=== PATIENT | male | born 1950 | race Caucasian/White ===

== ENCOUNTER 2021-02-14 18:28 | Observation (INO) | payer MEDICARE, OTHER ==
[~2021-02-14] VITALS: Ht 177.8 cm; Wt 99.3 kg
[2021-02-14 18:41] LABS: BASOPHILS % (AUTO) 0 % (0-10); EOSINOPHILS # (AUTO) 0.1 10^3/uL (0.0-0.3); EOSINOPHILS % (AUTO) 1 % (0-10); HEMATOCRIT 42 % (40-54); HEMOGLOBIN 13.4 g/dL (13.3-17.7); LYMPHOCYTES # (AUTO) 2.5 10^3/uL (1.0-4.0); LYMPHOCYTES % (AUTO) 20 % (12-44); MEAN CORPUSCULAR HEMOGLOBIN 30 pg (25-34); MEAN CORPUSCULAR HGB CONC 32 g/dL (32-36); MEAN CORPUSCULAR VOLUME 94 fL (80-99); MEAN PLATELET VOLUME 10.4 fL (9.0-12.2); MONOCYTES # (AUTO) 1.5 10^3/uL (0.0-1.0); MONOCYTES % (AUTO) 12 % (0-12); NEUTROPHILS # (AUTO) 8.2 10^3/uL (1.8-7.8); NEUTROPHILS % (AUTO) 66 % (42-75); PLATELET COUNT 197 10^3/uL (130-400); WHITE BLOOD COUNT 12.3 10^3/uL (4.3-11.0)
--- NOTE | 2021-02-14 18:42 | ED Cardiac General ---
History of Present Illness General Chief Complaint: Cardiac/General Problems Stated Complaint: CP Source: patient Exam Limitations: no limitations History of Present Illness Date Seen by Provider: February 14, 2021 Time Seen by Provider: 18:35 Initial Comments This is a well-appearing 70-year-old male who presents to the ER via POV with complaints of fatigue and generalized weakness for the past 2 days. States that he fell on Sunday and injured his wrist, no fractures identified at that time. Today he was seen by [facility] and was noted to have elevated heart rate in the 140s and he was referred to the emergency department for further evaluation. He denies fever, chills, cough, shortness of breath, nausea, vomiting, diarrhea, abdominal pain. Allergies and Home Medications Allergies Coded Allergies: azithromycin (Verified Allergy, Unknown, 02/14/21) "ARM SWELLING" Patient Home Medication List Home Medication List Reviewed: Yes Review of Systems Review of Systems Constitutional: see HPI EENTM: No Symptoms Reported Respiratory: See HPI Cardiovascular: See HPI Gastrointestinal: No Symptoms Reported Genitourinary: No Symptoms Reported Musculoskeletal: no symptoms reported Skin: no symptoms reported Psychiatric/Neurological: No Symptoms Reported Past Pnezsop-Ommhqe-Fiavhz Hx Patient Social History Recent Infectious Disease Expo: No Physical Exam Vital Signs Vital Signs - First Documented 02/14/21 18:31 Temp 36.0 Pulse 144 Resp 18 B/P (MAP) 161/116 (131) O2 Delivery Room Air Capillary Refill : Less Than 3 Seconds Height, Weight, BMI Height: '" Weight: lbs. oz. kg; 31.00 BMI Method: General Appearance: No Apparent Distress, WD/WN HEENT: PERRL/EOMI, Normal ENT Inspection Neck: Full Range of Motion, Non Tender Respiratory: Chest Non Tender, Lungs Clear, Normal Breath Sounds, No Accessory Muscle Use Cardiovascular: Normal Peripheral Pulses, Irregularly Irregular, Tachycardia Gastrointestinal: Normal Bowel Sounds, Non Tender, Soft Extremity: Normal Inspection, Normal Range of Motion, Non Tender Neurologic/Psychiatric: Alert, Oriented x3, No Motor/Sensory Deficits, Normal Mood/Affect Skin: Normal Color, Warm/Dry Progress/Results/Core Measures Results/Orders Lab Results Laboratory Tests Test 02/14/21 18:34 02/14/21 19:27 Range/Units White Blood Count 12.3 H 4.3-11.0 10^3/uL Red Blood Count 4.43 4.30-5.52 10^6/uL Hemoglobin 13.4 13.3-17.7 g/dL Hematocrit 42 40-54 % Mean Corpuscular Volume 94 80-99 fL Mean Corpuscular Hemoglobin 30 25-34 pg Mean Corpuscular Hemoglobin Concent 32 32-36 g/dL Red Cell Distribution Width 12.6 10.0-14.5 % Platelet Count 197 130-400 10^3/uL Mean Platelet Volume 10.4 9.0-12.2 fL Immature Granulocyte % (Auto) 1 % Neutrophils (%) (Auto) 66 42-75 % Lymphocytes (%) (Auto) 20 12-44 % Monocytes (%) (Auto) 12 0-12 % Eosinophils (%) (Auto) 1 0-10 % Basophils (%) (Auto) 0 0-10 % Neutrophils # (Auto) 8.2 H 1.8-7.8 10^3/uL Lymphocytes # (Auto) 2.5 1.0-4.0 10^3/uL Monocytes # (Auto) 1.5 H 0.0-1.0 10^3/uL Eosinophils # (Auto) 0.1 0.0-0.3 10^3/uL Basophils # (Auto) 0.0 0.0-0.1 10^3/uL Immature Granulocyte # (Auto) 0.1 0.0-0.1 10^3/uL Prothrombin Time 13.8 12.2-14.7 SEC INR Comment 1.0 0.8-1.4 Activated Partial Thromboplast Time 29 24-35 SEC D-Dimer 0.81 H 0.00-0.49 UG/ML Sodium Level 142 135-145 MMOL/L Potassium Level 4.5 3.6-5.0 MMOL/L Chloride Level 108 H 98-107 MMOL/L Carbon Dioxide Level 22 21-32 MMOL/L Anion Gap 12 5-14 MMOL/L Blood Urea Nitrogen 22 H 7-18 MG/DL Creatinine 0.94 0.60-1.30 MG/DL Estimat Glomerular Filtration Rate > 60 BUN/Creatinine Ratio 23 Glucose Level 171 H 70-105 MG/DL Calcium Level 9.7 8.5-10.1 MG/DL Corrected Calcium 9.7 8.5-10.1 MG/DL Magnesium Level 1.8 1.6-2.4 MG/DL Total Bilirubin 0.6 0.1-1.0 MG/DL Aspartate Amino Transf (AST/SGOT) 25 5-34 U/L Alanine Aminotransferase (ALT/SGPT) 24 0-55 U/L Alkaline Phosphatase 80 40-136 U/L Total Creatine Kinase 59 30-200 U/L Creatine Kinase MB 1.9 <6.6 NG/ML Myoglobin 34.0 10.0-92.0 NG/ML Troponin I 0.043 H <0.028 NG/ML B-Type Natriuretic Peptide 363.6 H <100.0 PG/ML Total Protein 6.9 6.4-8.2 GM/DL Albumin 4.0 3.2-4.5 GM/DL Urine Color YELLOW Urine Clarity CLEAR Urine pH 5.5 5-9 Urine Specific [place] >=1.030 1.016-1.022 Urine Protein NEGATIVE NEGATIVE Urine Glucose (UA) NEGATIVE NEGATIVE Urine Ketones NEGATIVE NEGATIVE Urine Nitrite NEGATIVE NEGATIVE Urine Bilirubin NEGATIVE NEGATIVE Urine Urobilinogen 0.2 < = 1.0 MG/DL Urine Leukocyte Esterase NEGATIVE NEGATIVE Urine RBC (Auto) NEGATIVE NEGATIVE Urine RBC NONE /HPF Urine WBC NONE /HPF Urine Squamous Epithelial Cells NONE /HPF Urine Renal Epithelial Cells NONE /HPF Urine Crystals NONE /LPF Urine Bacteria NEGATIVE /HPF Urine Casts NONE /LPF Urine Mucus NEGATIVE /LPF Urine Culture Indicated NO My Orders Orders - RAUL MOROCHO STAKING ENGINEER Cbc With Automated Diff (02/14/21 18:34) Magnesium (02/14/21 18:34) Chest 1 View, Ap/Pa Only (02/14/21 18:34) Ekg Tracing (02/14/21 18:34) Comprehensive Metabolic Panel (02/14/21 18:34) Myoglobin Serum (02/14/21 18:34) Protime With Inr (02/14/21 18:34) Partial Thromboplastin Time (02/14/21 18:34) O2 (02/14/21 18:34) Monitor-Rhythm Ecg Trace Only (02/14/21 18:34) Ed Iv/Invasive Line Start (02/14/21 18:34) Creatine Kinase (02/14/21 18:34) Creatine Kinase Mb (02/14/21 18:34) BNP (02/14/21 18:34) Troponin I (02/14/21 18:34) Fibrin Degradation Products (02/14/21 18:34) Diltiazem Drip Pre-Mix (Cardizem Drip Pr (02/14/21 19:15) Diltiazem Injection (Cardizem Injection) (02/14/21 19:15) Urinalysis (02/14/21 19:30) Medications Given in ED Current Medications Medications Dose Ordered Sig/Megha Route Start Time Stop Time Status Last Admin Dose Admin Diltiazem HCl 10 mg ONCE ONCE IVP 02/14/21 19:15 02/14/21 19:16 DC 02/14/21 19:37 10 MG Vital Signs/I&O 02/14/21 18:31 Temp 36.0 Pulse 144 Resp 18 B/P (MAP) 161/116 (131) O2 Delivery Room Air Blood Pressure Mean: 131 Progress Progress Note : Progress Note Pt examined and in no acute distress. HR 144. States he has history of afib but is not on anticoagulants. States he takes baby Aspirin daily. Labs reviewed and are unremarkable. Noted to have slight elevation in troponin. Will trend. CXR neg for an acute findings. Initial ECG Impression Date: February 14, 2021 Initial ECG Impression Time: 18:36 Initial ECG Rate: 142 Initial ECG Rhythm: A Fib/Flutter Initial ECG Impression: Atrial Fibrillation w/RVR Diagnostic Imaging Diagonstic Imaging: Xray Plain Films/CT/US/NM/MRI: chest Comments NAME: MAYTE MURDOCK [facility] REC#: [id number] PT STATUS: REG ER : 1950 PHYSICIAN: RAUL MOROCHO STAKING ENGINEER ADMIT DATE: 02/14/21/ER Draft Date of Exam:02/14/21 CHEST 1 VIEW, AP/PA ONLY INDICATION: Chest pain and atrial fibrillation. Frontal chest obtained at 0655 p.m. There is cardiomegaly. There is no focal infiltrate or pneumothorax or pleural fluid. IMPRESSION: Cardiomegaly. No acute infiltrate or pleural fluid. Dictated on workstation # [id number] Dict: 02/14/21 1854 Trans: 02/14/21 1857 ADAL [id number] Interpreted by: MAURA BOJORQUEZ MD Electronically signed by: Reviewed: Reviewed by Me Departure Communication (Admissions) Time/Spoke to Admitting Phy: 19:[address] Flores. Patient to be admitted to the ICU. Will start on Eliquis BID. Time/Spoke to Consulting Phy: 19:[address] Jensen with cardiology. Recommended ICU admission, start Cardizem drip. and start Eliquis PO BID pending hospitalist. Impression Primary Impression: Atrial fibrillation with rapid ventricular response Disposition: ADMITTED INPATIENT Condition: Stable Admissions Decision to Admit Reason: Admit from ER (General) Decision to Admit/Date: February 14, 2021 Time/Decision to Admit Time: 19:44 Departure-Patient Inst. Referrals: UNKNOWN (PCP/Family) Primary Care Physician RAUL MOROCHO STAKING ENGINEER February 14, 2021 18:42
[2021-02-14] MEDS ORDERED: ESCI-2 PO (18:46)
[2021-02-14] MEDS ORDERED: METF-865 PO (18:46)
[2021-02-14] MEDS ORDERED: ESCI20TA39 (18:46)
[2021-02-14] MEDS ORDERED: INSU200I4 SC (18:46)
[2021-02-14] MEDS ORDERED: SOTA80TA62 PO (18:46)
[2021-02-14] MEDS ORDERED: LOSA100T57 PO (18:46)
[2021-02-14] MEDS ORDERED: PRAV40TA2 PO (18:46)
--- NOTE | 2021-02-14 18:57 | Diagnostic Imaging Report ---
INDICATION: Chest pain and atrial fibrillation. Frontal chest obtained at 0655 p.m. There is cardiomegaly. There is no focal infiltrate or pneumothorax or pleural fluid. IMPRESSION: Cardiomegaly. No acute infiltrate or pleural fluid. Dictated by: Dictated on workstation # [id number]
[2021-02-14 19:00] LABS: ALANINE AMINOTRANSFERASE 24 U/L (0-55); ALKALINE PHOSPHATASE 80 U/L (40-136); BILIRUBIN,TOTAL 0.6 MG/DL (0.1-1.0); BUN/CREATININE RATIO 23; CALCIUM 9.7 MG/DL (8.5-10.1); CARBON DIOXIDE 22 MMOL/L (21-32); CHLORIDE 108 MMOL/L (98-107); CREATINE KINASE 59 U/L (30-200); CREATININE SERUM 0.94 MG/DL (0.60-1.30); GFR ESTIMATED > 60; GLUCOSE 171 MG/DL (70-105); MAGNESIUM 1.8 MG/DL (1.6-2.4); POTASSIUM 4.5 MMOL/L (3.6-5.0); SODIUM 142 MMOL/L (135-145); TOTAL PROTEIN 6.9 GM/DL (6.4-8.2)
[2021-02-14 19:04] LABS: FIBRIN DEGRADATION PRODUCTS 0.81 UG/ML (0.00-0.49); PROTHROMBIN TIME PATIENT 13.8 SEC (12.2-14.7)
[2021-02-14 19:08] LABS: CREATINE KINASE MB 1.9 NG/ML (<6.6)
[2021-02-14] MEDS ORDERED: dilTIAZem DRIP PRE-MIX 125 ML IV SCH (19:15)
[2021-02-14 19:37] LABS: BILIRUBIN,URINE NEGATIVE (NEGATIVE); CLARITY,URINE CLEAR; COLOR,URINE YELLOW; GLUCOSE, URINE (UA) NEGATIVE (NEGATIVE); KETONES,URINE NEGATIVE (NEGATIVE); LEUKOCYTE ESTERASE ,URINE NEGATIVE (NEGATIVE); NITRITE,URINE NEGATIVE (NEGATIVE); PH,URINE 5.5 (5-9); PROTEIN,URINE NEGATIVE (NEGATIVE)
[2021-02-14 19:45] LABS: BACTERIA,URINE NEGATIVE /HPF
[2021-02-14] MEDS ORDERED: NS IV 1000 ML 1,000 ML ONE (21:01)
[2021-02-14 21:55] VITALS: BP 161/116
[2021-02-14] MEDS ORDERED: NS IV 1000 ML 1,000 ML IV SCH (22:00)
[2021-02-14] MEDS ORDERED: ACETAMINOPHEN 325 MG TABLET PO PRN (22:00)
[2021-02-14] MEDS ORDERED: RT-ALBUTEROL SULF 2.5 MG/3 ML PRE-MIX VIAL INH PRN (22:00)
[2021-02-14] MEDS ORDERED: NS 100 ML (IVPB) BAG IV ONE (23:15)
[2021-02-14] MEDS ORDERED: IOHEXOL 350 MG/ML 100 ML (OMNIPAQUE 350) VIAL IV ONE (23:15)
[2021-02-14] MEDS ORDERED: HOLD METFORMIN - RECEIVED CONTRAST 20 ML VIAL IV SCH (23:15)
[2021-02-14] MEDS: dilTIAZem DRIP PRE-MIX 125 ML IV SCH (23:40)
[2021-02-14] MEDS: APIXABAN 5 MG (ELIQUIS) TABLET PO SCH (23:40)
[2021-02-15 00:50] LABS: BASOPHILS % (AUTO) 0 % (0-10); EOSINOPHILS # (AUTO) 0.1 10^3/uL (0.0-0.3); EOSINOPHILS % (AUTO) 1 % (0-10); HEMATOCRIT 40 % (40-54); HEMOGLOBIN 12.6 g/dL (13.3-17.7); LYMPHOCYTES # (AUTO) 2.4 10^3/uL (1.0-4.0); LYMPHOCYTES % (AUTO) 22 % (12-44); MEAN CORPUSCULAR HEMOGLOBIN 30 pg (25-34); MEAN CORPUSCULAR HGB CONC 32 g/dL (32-36); MEAN CORPUSCULAR VOLUME 95 fL (80-99); MEAN PLATELET VOLUME 10.6 fL (9.0-12.2); MONOCYTES # (AUTO) 1.3 10^3/uL (0.0-1.0); MONOCYTES % (AUTO) 12 % (0-12); NEUTROPHILS # (AUTO) 6.8 10^3/uL (1.8-7.8); NEUTROPHILS % (AUTO) 64 % (42-75); PLATELET COUNT 177 10^3/uL (130-400); WHITE BLOOD COUNT 10.6 10^3/uL (4.3-11.0)
[2021-02-15 01:07] LABS: BUN/CREATININE RATIO 23; CALCIUM 9.4 MG/DL (8.5-10.1); CARBON DIOXIDE 22 MMOL/L (21-32); CHLORIDE 106 MMOL/L (98-107); CHOLESTEROL 109 MG/DL (< 200); CREATININE SERUM 0.87 MG/DL (0.60-1.30); GFR ESTIMATED > 60; GLUCOSE 204 MG/DL (70-105); HDL CHOLESTEROL 33 MG/DL (40-60); MAGNESIUM 1.8 MG/DL (1.6-2.4); PHOSPHORUS 3.2 MG/DL (2.3-4.7); POTASSIUM 4.4 MMOL/L (3.6-5.0); SODIUM 139 MMOL/L (135-145); TRIGLYCERIDES 102 MG/DL (<150); VLDL CHOLESTEROL 20 MG/DL (5-40)
--- NOTE | 2021-02-15 04:43 | Pulmonary Consultation ---
History of Present Illness History of Present Illness Date Seen by Provider: February 15, 2021 Time Seen by Provider: 04:38 Date of Admission History of Present Illness 70-year-old presented to ED secondary to persistent and worsening fatigue and generalized weakness for the past 2 days. Pt fell on Sunday and injured his wrist, no fractures identified at that time. Pt was seen at [facility] yesterday and was noted to have elevated heart rate in the 140s and he was referred to the emergency department for further evaluation. Denies SOB, N/V/D. CT of chest shows moderate pericardial effusion. Allergies and Home Medications Allergies Coded Allergies: azithromycin (Verified Allergy, Unknown, 02/14/21) "ARM SWELLING" Past Ezhyyvg-Fmgqfq-Vjugte Hx Patient Social History Alcohol Use: Past History Smoking Status: Former Smoker Recent Infectious Disease Expo: No Recent Hopitalizations: No Immunizations Up To Date Date of Influenza Vaccine: Jul 15, 2020 Seasonal Allergies Seasonal Allergies: No Past Medical History Surgeries: Yes Orthopedic Respiratory: No Cardiac: Yes Atrial Fibrillation, Hypertension, Irregular Heartbeat Neurological: No Prostate Problems Gastrointestinal: No Musculoskeletal: No Endocrine: Yes Diabetes, Non-Insulin dep HEENT: No Cancer: No Psychosocial: No Integumentary: No Blood Disorders: No Adverse Reaction/Blood Tranf: No Review of Systems Time Seen by Provider: 04:38 Constitutional: Weakness, Malaise; No: Fever, Chills, Sweats, Other Eyes: No: Pain, Vision change, Conjunctivae inflammation, Eyelid inflammation, Other, Redness ENT: No: Ear pain, Ear discharge, Nose pain, Nose discharge, Nose congestion, Mouth pain, Mouth swelling, Throat pain, Throat swelling, Other Respiratory: No: Cough, Dry, Shortness of breath, SOB with excertion, Wheezing, Hemoptysis, Pleuritic Pain, Sputum, Wheezing, Other Cardiovascular: No: Chest Pain, Palpitations, Orthopnea, Paroxysmal Noc. Dyspnea, Edema, Lt Headedness, Other Gastrointestinal: No: Nausea, Vomiting, Abdominal Pain, Diarrhea, Constipation, Melena, Hematochezia, Other Genitourinary: No Dysuria, No Frequency, No Incontinence, No Hematuria, No Retention, No Other Musculoskeletal: No: other, neck pain, shoulder pain, arm pain, back pain, hand pain, leg pain, foot pain Skin: No: Rash, Lesions, Jaundice, Bruising, Other Sepsis Event Evaluation Height, Weight, BMI Height: '" Weight: lbs. oz. kg; 31.91 BMI Method: Exam Exam Vital Signs Date Time Temp Pulse Resp B/P (MAP) Pulse Ox O2 Delivery O2 Flow Rate FiO2 02/15/21 04:00 76 105/72 (83) 90 Room Air 02/15/21 04:00 91 Room Air 02/15/21 03:00 73 98/60 (73) 92 Room Air 02/15/21 02:00 80 104/62 (76) 90 Room Air 02/15/21 01:00 96 92/70 (77) 91 Room Air 02/15/21 01:00 103 02/15/21 00:00 114 117/58 (77) 93 Room Air 02/14/21 23:59 91 Room Air 02/14/21 23:16 129 137/90 (106) 93 Room Air 02/14/21 23:05 146 Room Air 02/14/21 22:15 123/87 (99) 02/14/21 22:00 126 95 Room Air 02/14/21 21:55 144 21 02/14/21 21:45 137 166/135 (145) 95 Room Air 02/14/21 21:30 115 135/88 (104) 96 Room Air 02/14/21 21:20 109 121/68 (85) 94 Room Air 02/14/21 21:18 36.4 109 18 147/115 (126) 98 Room Air 02/14/21 21:12 124 02/14/21 18:31 36.0 144 18 161/116 (131) Room Air I & O 02/15/21 07:00 Intake Total 250 ml Balance 250 ml Height & Weight Height: '" Weight: lbs. oz. kg; 31.91 BMI Method: General Appearance: No Apparent Distress, WD/WN HEENT: PERRL/EOMI, Normal ENT Inspection Neck: Full Range of Motion, Non Tender Respiratory: Chest Non Tender, Lungs Clear, Normal Breath Sounds, No Accessory Muscle Use Cardiovascular: Normal Peripheral Pulses, Irregularly Irregular, Tachycardia Capillary Refill: Less Than 3 Seconds Extremity: Normal Inspection, Normal Range of Motion, Non Tender Neurologic/Psychiatric: Alert, Oriented x3, No Motor/Sensory Deficits, Normal Mood/Affect Skin: Normal Color, Warm/Dry Results Lab Laboratory Tests 02/14/21 18:34 5/4/21 00:40 Assessment/Plan Assessment/Plan Afib RVR -- converted to sinus at 3am -Cardizem gtt -IVF -Eliquis -Cardiology consulted Pericardial effusion -Echo pending generalized weakness -Pt/OT -Last fall was Sunday NSTEMI -Monitor GEORGETTE MONROE DO February 15, 2021 04:43
[2021-02-15] MEDS ORDERED: MAGNESIUM 1 GM/100 ML IVPB 100 ML IV ONE (04:50)
[2021-02-15] MEDS ORDERED: MAGNESIUM 1 GM/100 ML IVPB 100 ML IV SCH (06:00)
[2021-02-15] MEDS ORDERED: KCL 20 MEQ TAB (K-DUR) PO SCH (06:00)
[2021-02-15] MEDS ORDERED: POTASSIUM CL 10MEQ/50ML IVPB 50 ML IV SCH (06:00)
[2021-02-15] MEDS: dilTIAZem DRIP PRE-MIX 125 ML IV SCH (06:02)
[2021-02-15] MEDS ORDERED: PANTOPRAZOLE 40 MG (PROTONIX) TAB PO SCH (07:00)
[2021-02-15] MEDS ORDERED: ONDANSETRON 4 MG/2 ML (SDV) Z0FRAN IV PRN (07:00)
[2021-02-15] MEDS: APIXABAN 5 MG (ELIQUIS) TABLET PO SCH (07:50)
--- NOTE | 2021-02-15 07:58 | Diagnostic Imaging Report ---
PROCEDURE: CT angiography of the chest with contrast. TECHNIQUE: Multiple contiguous axial images were obtained through the chest after uneventful bolus administration of intravenous contrast. 3D reconstructed CTA MIP acquisitions were also performed. Auto Exposure Controls were utilized during the CT exam to meet ALARA standards for radiation dose reduction. INDICATION: Pain FINDINGS: There are no intraluminal pulmonary arterial filling defects. There were no findings of pulmonary arterial embolus. The thoracic aorta is patent and nonaneurysmal and nonacute. There is pericardial effusion greatest along the left heart border where it measures a thickness of 17 mm. No pleural effusion. There is prominence of the mediastinal fat. There are few mediastinal lymph nodes present, however, all of them have short axes of less than 1 cm and none are grossly pathologic. Some coronary artery atherosclerotic vascular calcifications. There are old rib deformities, some mild pulmonary venous congestion as well as some zones of partial atelectasis likely owing to incomplete inspiratory volume. No dedrick consolidation. No intracardiac chamber mass or thrombus. The visualized upper abdomen shows partially visualized mild low-density left adrenal nodularity likely hyperplasia or adenomas. IMPRESSION: Small to moderate pericardial effusion with no pleural effusion, mild vascular congestion and partial atelectasis. Negative for PE or acute aortic disease. No suspicious mass or pathological appearing lymph nodes. Dictated by: Dictated on workstation # [id number]
--- NOTE | 2021-02-15 08:04 | Diagnostic Imaging Report ---
CHEST 1 VIEW, AP/PA ONLY Indication: Dyspnea Comparison: 02/14/2021 Findings: Stable enlargement of cardiac silhouette. No consolidation within the visualized lungs. No pleural effusion or pneumothorax. Impression: 1. Unchanged cardiomegaly without adverse development. Dictated by: Dictated on workstation # [id number]
--- NOTE | 2021-02-15 08:31 | Consultation-Cardiology ---
HPI-Cardiology Cardiology Consultation: Date of Consultation 02/15/21 Time Seen by a Provider: 08:25 Date of Admission 02-14-21 Attending Physician Esme Parks DO Admitting Physician Meliza,Local Physician Consulting Physician Ishmael Jensen MD HPI: Chief Complaint: A-fib with RVR Mr. Gonzalez is a 70 yr old male admitted to ICU 10 from the ED with a-fib with RVR. His primary news library director is Dr. Salgado at [facility]. He reports for the last few days he has had increasing dizziness, gen weakness and elevated HR. He denies any c/o CP. He states he has a h/o PAF for which he takes Sotalol. He reports he does not take OAC, he takes a full dose ASA 325mg daily. He reports he lost his balance on Sunday and fell injuring his right wrist. He denies that it was a syncopal episode. He reports he was seen in an Urgent care for tx and they directed him to f/u with his provider, which he had not done yet. He denies any syncope or near syncope. No c/o LE swelling. Review of Systems-Cardiology Review of Systems Constitutional: No chills, No fever; lightheadedness, malaise Eyes: No vision change Ears/Nose/Throat: No epistaxis, No recent hearing loss Respiratory: As described under HPI Cardiovascular: As described under HPI Gastrointestinal: no symptoms reported Genitourinary: No dysuria, No hematuria Musculoskeletal: no symptoms reported Skin: No rash on exposed areas, No ulcerations on exposed areas Psychiatric/Neurological: No anxiety, No depression, No seizure, No focal we akness, No syncope Hematologic: No bleeding abnormalities [id number]-[id number] Hx Patient Social History Smoking Status: Former Smoker Immunizations Up To Date Date of Influenza Vaccine: Jul 15, 2020 Past Medical History PMH As described under Assessment. Allergies and Home Medications Allergies Coded Allergies: azithromycin (Verified Allergy, Unknown, 02/14/21) "ARM SWELLING" Home Medications Aspirin 81 Mg Tablet.dr, 81 MG PO DAILY, (Reported) Last Action: Reviewed Escitalopram Oxalate 10 Mg Tablet, 10 MG PO DAILY, (Reported) Last Action: Reviewed Insulin Degludec 200 Unit/1 Ml Insuln.pen, 74 UNITS SC HS, (Reported) Last Action: Reviewed Losartan Potassium 100 Mg Tablet, 100 MG PO DAILY, (Reported) Last Action: Reviewed Metformin HCl 500 Mg Tab.er.24h, 1,000 MG PO BID, (Reported) TAKES 2 (500MG) TABS Last Action: Reviewed Pravastatin Sodium 40 Mg Tablet, 40 MG PO HS, (Reported) Last Action: Reviewed Sotalol HCl 80 Mg Tablet, 80 MG PO BID, (Reported) Last Action: Reviewed Physical Exam-Cardiology Physical Exam Vital Signs/I&O 02/14/21 02/14/21 02/14/21 02/15/21 23:05 23:16 23:59 00:00 Pulse 146 129 114 B/P (MAP) 137/90 (106) 117/58 (77) Pulse Ox 93 91 93 O2 Delivery Room Air Room Air Room Air Room Air 02/15/21 02/15/21 02/15/21 02/15/21 01:00 01:00 02:00 03:00 Pulse 103 96 80 73 B/P (MAP) 92/70 (77) 104/62 (76) 98/60 (73) Pulse Ox 91 90 92 O2 Delivery Room Air Room Air Room Air 02/15/21 02/15/21 02/15/21 02/15/21 04:00 04:00 05:00 06:00 Pulse 76 80 83 B/P (MAP) 105/72 (83) 103/60 (74) 132/86 (101) Pulse Ox 91 90 91 92 O2 Delivery Room Air Room Air Room Air Room Air 02/15/21 02/15/21 02/15/21 02/15/21 06:59 07:00 07:40 08:00 Temp 36.6 Pulse 93 80 B/P (MAP) 115/67 (83) Pulse Ox 92 O2 Delivery Room Air Room Air 02/15/21 02/15/21 02/15/21 08:00 09:00 10:00 Pulse 79 95 89 B/P (MAP) 129/87 (101) 146/86 (106) 117/71 (86) Pulse Ox 93 93 93 O2 Delivery Room Air Room Air Room Air 02/15/21 00:00 Intake Total 250 ml Balance 250 ml Capillary Refill : Less Than 3 Seconds Constitutional: AAO x 3, well-developed, well-nourished HEENT: PERRL, hearing is well preserved, oral hygience is good Neck: No carotid bruit; carotid pulses are 2 + bilaterally Respiratory: No accessory muscle use, No respiratory distress; chest expansion is symmetric, chest is bilaterally symmetric, lungs clear to auscultation Cardiovascular: regular rate-rhythm; No JVD; S1 and S2, systolic murmur Gastrointestinal: No tender; soft, round, audible bowel sounds Extremities: no lower extremity edema bilateral Neurologic/Psychiatric: grossly intact (moves all extremities) Skin: No rash on exposed areas, No ulcerations on exposed areas Data Review Labs Laboratory Tests 02/14/21 18:34: White Blood Count 12.3H, Red Blood Count 4.43, Hemoglobin 13.4, Hematocrit 42, Mean Corpuscular Volume 94, Mean Corpuscular Hemoglobin 30, Mean Corpuscular Hemoglobin Concent 32, Red Cell Distribution Width 12.6, Platelet Count 197, Mean Platelet Volume 10.4, Immature Granulocyte % (Auto) 1, Neutrophils (%) (Auto) 66, Lymphocytes (%) (Auto) 20, Monocytes (%) (Auto) 12, Eosinophils (%) (Auto) 1, Basophils (%) (Auto) 0, Neutrophils # (Auto) 8.2H, Lymphocytes # (Auto) 2.5, Monocytes # (Auto) 1.5H, Eosinophils # (Auto) 0.1, Basophils # (Auto) 0.0, Immature Granulocyte # (Auto) 0.1, Prothrombin Time 13.8, INR Comment 1.0, Activated Partial Thromboplast Time 29, D-Dimer 0.81H, Sodium Level 142, Potassium Level 4.5, Chloride Level 108H, Carbon Dioxide Level 22, Anion Gap 12, Blood Urea Nitrogen 22H, Creatinine 0.94, Estimat Glomerular Filtration Rate > 60, BUN/Creatinine Ratio 23, Glucose Level 171H, Calcium Level 9.7, Corrected Calcium 9.7, Magnesium Level 1.8, Total Bilirubin 0.6, Aspartate Amino Transf (AST/SGOT) 25, Alanine Aminotransferase (ALT/SGPT) 24, Alkaline Phosphatase 80, Total Creatine Kinase 59, Creatine Kinase MB 1.9, Myoglobin 34.0, Troponin I 0.043H, B-Type Natriuretic Peptide 363.6H, Total Protein 6.9, Albumin 4.0 02/14/21 19:27: Urine Color YELLOW, Urine Clarity CLEAR, Urine pH 5.5, Urine Specific [place] >=1.030, Urine Protein NEGATIVE, Urine Glucose (UA) NEGATIVE, Urine Ketones NEGATIVE, Urine Nitrite NEGATIVE, Urine Bilirubin NEGATIVE, Urine Urobilinogen 0.2, Urine Leukocyte Esterase NEGATIVE, Urine RBC (Auto) NEGATIVE, Urine RBC NONE, Urine WBC NONE, Urine Squamous Epithelial Cells NONE, Urine Renal Epithelial Cells NONE, Urine Crystals NONE, Urine Bacteria NEGATIVE, Urine Casts NONE, Urine Mucus NEGATIVE, Urine Culture Indicated NO 02/15/21 00:40: White Blood Count 10.6, Red Blood Count 4.17L, Hemoglobin 12.6L, Hematocrit 40, Mean Corpuscular Volume 95, Mean Corpuscular Hemoglobin 30, Mean Corpuscular Hemoglobin Concent 32, Red Cell Distribution Width 12.8, Platelet Count 177, Mean Platelet Volume 10.6, Immature Granulocyte % (Auto) 0, Neutrophils (%) (Auto) 64, Lymphocytes (%) (Auto) 22, Monocytes (%) (Auto) 12, Eosinophils (%) (Auto) 1, Basophils (%) (Auto) 0, Neutrophils # (Auto) 6.8, Lymphocytes # (Auto) 2.4, Monocytes # (Auto) 1.3H, Eosinophils # (Auto) 0.1, Basophils # (Auto) 0.0, Immature Granulocyte # (Auto) 0.0, Sodium Level 139, Potassium Level 4.4, Chloride Level 106, Carbon Dioxide Level 22, Anion Gap 11, Blood Urea Nitrogen 20H, Creatinine 0.87, Estimat Glomerular Filtration Rate > 60, BUN/Creatinine Ratio 23, Glucose Level 204H, Calcium Level 9.4, Magnesium Level 1.8, Troponin I 0.052H, Phosphorus Level 3.2, Triglycerides Level 102, Cholesterol Level 109, LDL Cholesterol Direct 60, VLDL Cholesterol 20, HDL Cholesterol 33L, Thyroid Stimulating Hormone (TSH) 1.63 02/15/21 07:01: Troponin I 0.054H Radiology NAME: MAYTE GONZALEZ [facility] REC#: [id number] PT STATUS: ADM Juan : 1950 PHYSICIAN: CHIDI STEEL MD ADMIT DATE: 02/14/21/ICU Draft Date of Exam:02/14/21 CT ANGIO CHEST W PROCEDURE: CT angiography of the chest with contrast. TECHNIQUE: Multiple contiguous axial images were obtained through the chest after uneventful bolus administration of intravenous contrast. 3D reconstructed CTA MIP acquisitions were also performed. Auto Exposure Controls were utilized during the CT exam to meet ALARA standards for radiation dose reduction. INDICATION: Pain FINDINGS: There are no intraluminal pulmonary arterial filling defects. There were no findings of pulmonary arterial embolus. The thoracic aorta is patent and nonaneurysmal and nonacute. There is pericardial effusion greatest along the left heart border where it measures a thickness of 17 mm. No pleural effusion. There is prominence of the mediastinal fat. There are few mediastinal lymph nodes present, however, all of them have short axes of less than 1 cm and none are grossly pathologic. Some coronary artery atherosclerotic vascular calcifications. There are old rib deformities, some mild pulmonary venous congestion as well as some zones of partial atelectasis likely owing to incomplete inspiratory volume. No dedrick consolidation. No intracardiac chamber mass or thrombus. The visualized upper abdomen shows partially visualized mild low-density left adrenal nodularity likely hyperplasia or adenomas. IMPRESSION: Small to moderate pericardial effusion with no pleural effusion, mild vascular congestion and partial atelectasis. Negative for PE or acute aortic disease. No suspicious mass or pathological appearing lymph nodes. Dictated on workstation # [id number] Dict: 02/15/21701 Trans: 02/15/21 0758 ADAL [id number] Interpreted by: GUSTAVO CANDELARIA NAME: MAYTE GONZALEZ [facility] REC#: [id number] PT STATUS: ADM Juan : 1950 PHYSICIAN: ESME PARKS DO ADMIT DATE: 02/14/21/ICU Draft Date of Exam:02/15/21 CHEST 1 VIEW, AP/PA ONLY CHEST 1 VIEW, AP/PA ONLY Indication: Dyspnea Comparison: 02/14/2021 Findings: Stable enlargement of cardiac silhouette. No consolidation within the visualized lungs. No pleural effusion or pneumothorax. Impression: 1. Unchanged cardiomegaly without adverse development. Dictated on workstation # [id number] Dict: 02/15/21756 Trans: 02/15/21 0803 MYNOR [id number] Interpreted by: KAROLINA CASTANEDA MD Electronically signed by: ECG Impression ECG Initial ECG Impression: Atrial Fibrillation w/RVR A/P-Cardiology Assessment/Admission Diagnosis A-fib with RVR - converted to SR with controlled rate Reports h/o PAF for which he follows with Dr. Salgado - h/o cardioversion a year ago Reports he on ASA 325mg daily per provider choice - no reported h/o bleeding issues Reports h/o cardiomyopathy Reports cardiac cath approx [address] Salgado - no blockages found Reports MPI a year ago - normal per pt report Mildly elevated troponin - NSTEMI vs Type 2 [place] d/t a-fib with RVR Pericardial effusion per CT of the chest on 02-14-21 Fatigue/gen weakness of undetermined etiology BPH RLS Prob BISI - reports sleep study which was "inconclusive" Discussion and Recomendations A-fib with RVR- converted to SR H/O PAF for which he follows with Dr. Salgado Reports only on ASA 325mg daily for stroke prophylaxis Echocardiogram today to eval structure and function Request records from [facility] Monitor lab Replace electrolytes as indicated Continue home medications ANICETO RODRIGUEZ February 15, 2021 08:31
--- NOTE | 2021-02-15 08:42 | History & Physical-Hospitalist ---
History of Present Illness HPI/Chief Complaint CC: AF with RVR HPI: This is a 70yoWM clinic pt of [facility] who has a hex of AF. He was found to have AF with RVR requiring admission to the hospital. Cardiology was consulted and Cardizem Drip was initiated. At this current time, daughter is at the bedside and pt denies any chest pain or SOB. Source: patient Exam Limitations: no limitations Date Seen 02/15/21 Time Seen by a Provider: 09:30 Attending Physician Esme Flores DO PCP No,Local Physician Referring Physician Date of Admission February 14, 2021 at 20:03 Home Medications & Allergies Home Medications Reviewed patient Home Medication Reconciliation performed by pharmacy medication reconciliations turbine technician and/or nursing. Patients Allergies have been reviewed. Allergies Allergies Coded Allergies azithromycin (Verified Allergy, Unknown, 02/14/21) "ARM SWELLING" Patient Social History Marrital Status: single Employed/Student: retired Tobacco Use?: No Smoking Status: Former Smoker Alcohol Use?: No Immunizations Up To Date Influenza Vaccine Up-to-Date: Yes; Up-to-Date Current Status Communicates: Verbally Primary Language: Norwegian Preferred Spoken Language: Norwegian Past Medical History AF CAD HTN Review of Systems Constitutional: see HPI Cardiovascular: palpitations Physical Exam Physical Exam Vital Signs Vital Signs - First Documented 02/14/21 02/14/21 02/14/21 18:31 21:18 21:55 Temp 36.0 Pulse 144 Resp 18 B/P (MAP) 161/116 (131) Pulse Ox 98 O2 Delivery Room Air FiO2 21 Capillary Refill : Less Than 3 Seconds Height, Weight, BMI Height: '" Weight: lbs. oz. kg; 31.91 BMI Method: General Appearance: No Apparent Distress, Chronically ill, Obese Eyes: Right Eye Normal Inspection, Right Eye PERRL HEENT: PERRL/EOMI, Normal ENT Inspection, Pharynx Normal, Moist Mucous Membranes Neck: Full Range of Motion, Normal Inspection, Non Tender Respiratory: Chest Non Tender, Lungs Clear, Normal Breath Sounds, No Accessory Muscle Use, No Respiratory Distress Cardiovascular: Regular Rate, Rhythm, No Edema, No Gallop, No JVD, No Murmur, Normal Peripheral Pulses Gastrointestinal: Normal Bowel Sounds, No Organomegaly, No Pulsatile Mass, Non Tender, Soft Back: Normal Inspection, No CVA Tenderness, No Vertebral Tenderness Extremity: Normal Capillary Refill, Normal Inspection, Normal Range of Motion, Non Tender, No Calf Tenderness, No Pedal Edema Neurologic/Psychiatric: Alert, Oriented x3, No Motor/Sensory Deficits, Normal Mood/Affect Skin: Normal Color, Warm/Dry Lymphatic: No Adenopathy Results Results/Procedures Labs Laboratory Tests 02/14/21 18:34 02/15/21 00:40 Patient resulted labs reviewed. Assessment/Plan Admission Diagnosis Assessment: AF RVR CAD HTN Obesity Presumed BISI Plan: Cardiology consultation Admission Status: Observation Diagnosis/Problems Diagnosis/Problems (1) Atrial fibrillation with rapid ventricular response Status: Acute ESME FLORES DO February 15, 2021 08:42
[2021-02-15] MEDS ORDERED: ASPI-1238 PO (10:09)
[2021-02-15] MEDS ORDERED: APIX5TAB PO (14:37)
[2021-02-15] MEDS ORDERED: DILT240C86 PO (14:39)
--- NOTE | 2021-02-15 15:29 | Consultation-Cardiology ---
HPI-Cardiology Cardiology Consultation: Date of Consultation 02/15/21 Time Seen by a Provider: 14:30 Date of Admission Attending Physician Esme Flores DO Admitting Physician No,Local Physician Consulting Physician HPI: Chief Complaint: Reason for Cardiology consultation: A-fib with RVR HPI Mr. Gonzalez is a 70 yr old male admitted to ICU 10 from the ED with a-fib with RVR. His primary beam builder helper is Dr. Salgado at [facility]. He reports for the last few days he has had increasing dizziness, gen weakness and elevated HR. He denies any c/o CP. He states he has a h/o PAF for which he takes Sotalol. He reports he does not take OAC, he takes a full dose ASA 325mg daily. He reports he lost his balance on Sunday and fell injuring his right wrist. He denies that it was a syncopal episode. He reports he was seen in an Urgent care for tx and they directed him to f/u with his provider, which he had not done yet. He denies any syncope or near syncope. No c/o LE swelling. Review of Systems-Cardiology Review of Systems Constitutional: No chills, No fever; lightheadedness, malaise Eyes: No vision change Ears/Nose/Throat: No epistaxis, No recent hearing loss Respiratory: As described under HPI Cardiovascular: As described under HPI Gastrointestinal: no symptoms reported Genitourinary: No dysuria, No hematuria Musculoskeletal: no symptoms reported Skin: No rash on exposed areas, No ulcerations on exposed areas Psychiatric/Neurological: No anxiety, No depression, No seizure, No focal weakness, No syncope Hematologic: No bleeding abnormalities FHC-Nyvypk-Efoxcj Hx Patient Social History Smoking Status: Former Smoker Immunizations Up To Date Date of Influenza Vaccine: Jul 15, 2020 Past Medical History PMH As described under Assessment. Allergies and Home Medications Allergies Coded Allergies: azithromycin (Verified Allergy, Unknown, 02/14/21) "ARM SWELLING" Home Medications Apixaban 5 Mg Tablet, 5 MG PO BID Prescribed by: ANICETO RODRIGUEZ on 02/15/21 1437 Aspirin 81 Mg Tablet.dr, 81 MG PO DAILY, (Reported) Last Action: Reviewed Diltiazem HCl 240 Mg Cap.er.24h, 240 MG PO DAILY Prescribed by: ANICETO RODRIGUEZ on 02/15/21 1439 Escitalopram Oxalate 10 Mg Tablet, 10 MG PO DAILY, (Reported) Last Action: Reviewed Insulin Degludec 200 Unit/1 Ml Insuln.pen, 74 UNITS SC HS, (Reported) Last Action: Reviewed Losartan Potassium 100 Mg Tablet, 100 MG PO DAILY, (Reported) Last Action: Reviewed Metformin HCl 500 Mg Tab.er.24h, 1,000 MG PO BID, (Reported) TAKES 2 (500MG) TABS Last Action: Reviewed Pravastatin Sodium 40 Mg Tablet, 40 MG PO HS, (Reported) Last Action: Reviewed Sotalol HCl 80 Mg Tablet, 80 MG PO BID, (Reported) Last Action: Reviewed Patient Home Medication List Home Medication List Reviewed: Yes Physical Exam-Cardiology Physical Exam Vital Signs/I&O 02/15/21 02/15/21 02/15/21 02/15/21 04:00 04:00 05:00 06:00 Pulse 76 80 83 B/P (MAP) 105/72 (83) 103/60 (74) 132/86 (101) Pulse Ox 91 90 91 92 O2 Delivery Room Air Room Air Room Air Room Air 02/15/21 02/15/21 02/15/21 02/15/21 06:59 07:00 07:40 08:00 Temp 36.6 Pulse 93 80 B/P (MAP) 115/67 (83) Pulse Ox 92 O2 Delivery Room Air Room Air 02/15/21 02/15/21 02/15/21 02/15/21 08:00 09:00 10:00 11:00 Pulse 79 95 89 86 B/P (MAP) 129/87 (101) 146/86 (106) 117/71 (86) 125/72 (89) Pulse Ox 93 93 93 93 O2 Delivery Room Air Room Air Room Air Room Air 02/15/21 02/15/21 02/15/21 02/15/21 12:00 12:00 12:00 12:57 Temp 36.4 Pulse 81 90 B/P (MAP) 140/89 (106) Pulse Ox 94 O2 Delivery Room Air Room Air 02/15/21 02/15/21 02/15/21 13:00 14:00 15:00 Pulse 88 89 90 B/P (MAP) 137/83 (101) 141/83 (102) 140/90 (107) Pulse Ox 93 95 93 O2 Delivery Room Air Room Air Room Air 02/15/21 00:00 Intake Total 250 ml Balance 250 ml Capillary Refill : Less Than 3 Seconds Constitutional: AAO x 3, well-developed, well-nourished HEENT: PERRL, hearing is well preserved, oral hygience is good Neck: No carotid bruit; carotid pulses are 2 + bilaterally Respiratory: No accessory muscle use, No respiratory distress; chest expansion is symmetric, chest is bilaterally symmetric, lungs clear to auscultation Cardiovascular: regular rate-rhythm; No JVD; S1 and S2, systolic murmur Gastrointestinal: No tender; soft, round, audible bowel sounds Extremities: no lower extremity edema bilateral Neurologic/Psychiatric: grossly intact (moves all extremities) Skin: No rash on exposed areas, No ulcerations on exposed areas Data Review Labs Laboratory Tests 02/14/21 18:34: White Blood Count 12.3H, Red Blood Count 4.43, Hemoglobin 13.4, Hematocrit 42, Mean Corpuscular Volume 94, Mean Corpuscular Hemoglobin 30, Mean Corpuscular Hemoglobin Concent 32, Red Cell Distribution Width 12.6, Platelet Count 197, Mean Platelet Volume 10.4, Immature Granulocyte % (Auto) 1, Neutrophils (%) (Au to) 66, Lymphocytes (%) (Auto) 20, Monocytes (%) (Auto) 12, Eosinophils (%) (Auto) 1, Basophils (%) (Auto) 0, Neutrophils # (Auto) 8.2H, Lymphocytes # (Auto) 2.5, Monocytes # (Auto) 1.5H, Eosinophils # (Auto) 0.1, Basophils # (Auto) 0.0, Immature Granulocyte # (Auto) 0.1, Prothrombin Time 13.8, INR Comment 1.0, Activated Partial Thromboplast Time 29, D-Dimer 0.81H, Sodium Level 142, Potassium Level 4.5, Chloride Level 108H, Carbon Dioxide Level 22, Anion Gap 12, Blood Urea Nitrogen 22H, Creatinine 0.94, Estimat Glomerular Filtration Rate > 60, BUN/Creatinine Ratio 23, Glucose Level 171H, Calcium Level 9.7, Corrected Calcium 9.7, Magnesium Level 1.8, Total Bilirubin 0.6, Aspartate Amino Transf (AST/SGOT) 25, Alanine Aminotransferase (ALT/SGPT) 24, Alkaline Phosphat ase 80, Total Creatine Kinase 59, Creatine Kinase MB 1.9, Myoglobin 34.0, Troponin I 0.043H, B-Type Natriuretic Peptide 363.6H, Total Protein 6.9, Albumin 4.0 02/14/21 19:27: Urine Color YELLOW, Urine Clarity CLEAR, Urine pH 5.5, Urine Specific [place] >=1.030, Urine Protein NEGATIVE, Urine Glucose (UA) NEGATIVE, Urine Ketones NEGATIVE, Urine Nitrite NEGATIVE, Urine Bilirubin NEGATIVE, Urine Urobilinogen 0.2, Urine Leukocyte Esterase NEGATIVE, Urine RBC (Auto) NEGATIVE, Urine RBC NONE, Urine WBC NONE, Urine Squamous Epithelial Cells NONE, Urine Renal Epithelial Cells NONE, Urine Crystals NONE, Urine Bacteria NEGATIVE, Urine Casts NONE, Urine Mucus NEGATIVE, Urine Culture Indicated NO 02/15/21 00:40: White Blood Count 10.6, Red Blood Count 4.17L, Hemoglobin 12.6L, Hematocrit 40, Mean Corpuscular Volume 95, Mean Corpuscular Hemoglobin 30, Mean Corpuscular Hemoglobin Concent 32, Red Cell Distribution Width 12.8, Platelet Count 177, Mean Platelet Volume 10.6, Immature Granulocyte % (Auto) 0, Neutrophils (%) (Auto) 64, Lymphocytes (%) (Auto) 22, Monocytes (%) (Auto) 12, Eosinophils (%) (Auto) 1, Basophils (%) (Auto) 0, Neutrophils # (Auto) 6.8, Lymphocytes # (Auto) 2.4, Monocytes # (Auto) 1.3H, Eosinophils # (Auto) 0.1, Basophils # (Auto) 0.0, Immature Granulocyte # (Auto) 0.0, Sodium Level 139, Potassium Level 4.4, Chloride Level 106, Carbon Dioxide Level 22, Anion Gap 11, Blood Urea Nitrogen 20H, Creatinine 0.87, Estimat Glomerular Filtration Rate > 60, BUN/Creatinine Ratio 23, Glucose Level 204H, Calcium Level 9.4, Magnesium Level 1.8, Troponin I 0.052H, Phosphorus Level 3.2, Triglycerides Level 102, Cholesterol Level 109, LDL Cholesterol Direct 60, VLDL Cholesterol 20, HDL Cholesterol 33L, Thyroid Stimulating Hormone (TSH) 1.63 02/15/21 07:01: Troponin I 0.054H 02/15/21 11:29: Glucometer 242H Laboratory Tests 02/14/21 18:34 02/15/21 00:40 A/P-Cardiology Assessment/Admission Diagnosis ASSESSMENT PAF with RVR - Reports prior h/o PAF for which he follows with Dr. Salgado - h/o cardioversion a year ago - h/o chronic sotalol therapy, initiated and managed by his beam builder helper Dr Salgado - had previously only been on ASA 325mg daily per provider choice - no reported h/o bleeding issues - Eliquis initiated during this hospitalization H/o cardiomyopathy and mild, [id number] CHF - reports was told had no CAD on card cath done by Dr Salgado in or around 2018 - reports MPI [address] Salgado was normal - Echo of 02/15/21: mod to sev concentric LVH, LVEF 35-40%, grade 2 kent dysfunction, small pericardial eff (hemodynamically nonsignificant), mild to mod MR & TR & AI, PASP 40-45 mmHg Mildly elevated troponin - NSTEMI vs Type 2 [place] d/t a-fib with RVR and ac on ch systolic CHF Fatigue/gen weakness of undetermined etiology BPH DM II Obesity with BMI approx 31 Prob BISI - reports sleep study which was "inconclusive" Discussion and Recomendations He has multiple CV comorbidities and management is complex Add oral long-acting dilt to regimen Changd to Eliquis for stroke prophylaxis Add diuretic Request records from [facility] Monitor lab Close clinical f/u as outpatient I had a very long and detailed discussion with him and his daughter and answered their many questions in detail BAMBI DUBON MD FACP FAC CCDS February 15, 2021 15:29
[2021-02-15] MEDS ORDERED: POTA10CA43 PO ×2 (16:18→16:28)
[2021-02-15] MEDS ORDERED: FURO-125 PO ×2 (16:18→16:28)
--- NOTE | 2021-02-16 05:33 | Discharge Summary ---
Discharge Summary Hospital Course Was the Problem List Reviewed?: Yes Problems/Dx: (1) Atrial fibrillation with rapid ventricular response Status: Acute Hospital Course Date of Admission: February 14, 2021 at 20:03 Admission Diagnosis : Family Physician/Provider: No,Local Physician Date of Discharge: 02/16/21 Discharge Diagnosis: AF RVR Hospital Course: SHort course after admitted for AF RVR. Cardiology evaluated the patient and obtained ECHO and reviewed [facility] records. Patient was DC on OAC and long acting Diltiazem. Labs and Pending Lab Test: Laboratory Tests 02/15/21 07:01: Troponin I 0.054H 02/15/21 11:29: Glucometer 242H Microbiology 02/14/21 MRSA Screen - Final, Complete MRSA not isolated Home Meds Active Potassium Chloride 10 Meq Capsule.er 10 Meq PO DAILY Lasix (Furosemide) 20 Mg Tablet 20 Mg PO DAILY Cardizem Cd (Diltiazem HCl) 240 Mg Cap.er.24h 240 Mg PO DAILY Eliquis (Apixaban) 5 Mg Tablet 5 Mg PO BID Reported Tresiba Flextouch U-200 (Insulin Degludec) 200 Unit/1 Ml Insuln.pen 74 Units SC HS Escitalopram Oxalate 10 Mg Tablet 10 Mg PO DAILY Metformin HCl ER (Metformin HCl) 500 Mg Tab.er.24h 1,000 Mg PO BID TAKES 2 (500MG) TABS Losartan Potassium 100 Mg Tablet 100 Mg PO DAILY Pravastatin Sodium 40 Mg Tablet 40 Mg PO HS Sotalol (Sotalol HCl) 80 Mg Tablet 80 Mg PO BID Assessment/Pt Instructions PCP 1 week Discharge Planning: <30 minutes discharge planning Discharge Instructions Discharge Diet: Cardiac Diet Activity as Tolerated: Yes Discharge Physical Examination Vital Signs Vital Signs Date Time Temp Pulse Resp B/P (MAP) Pulse Ox O2 Delivery O2 Flow Rate FiO2 02/15/21 16:41 02/15/21 16:00 81 93 Room Air 02/15/21 15:24 36.4 02/14/21 21:55 21 02/14/21 21:18 18 General Appearance: No Apparent Distress, WD/WN Allergies: Coded Allergies: azithromycin (Verified Allergy, Unknown, 02/14/21) "ARM SWELLING" Discharge Summary Date of Admission February 14, 2021 at 20:03 Date of Discharge February 15, 2021 at 16:56 Admission Diagnosis Assessment: AF RVR CAD HTN Obesity Presumed BISI Plan: Cardiology consultation Discharge Diagnosis (1) Atrial fibrillation with rapid ventricular response Status: Acute LEN PARKS DO February 16, 2021 05:33
== END 2021-02-15 16:56 | disposition home or self-care (01) ==
LOC: EDUNIT# 18:28 → ER 18:29 → ICU 20:03
PROVIDERS: ADMIT Internal Medicine; ATTEND Internal Medicine
DX: I48.91 Unspecified atrial fibrillation (principal); I31.3 Pericardial effusion (noninflammatory); I21.4 Non-ST elevation (NSTEMI) myocardial infarction; I10 Essential (primary) hypertension; I25.10 Atherosclerotic heart disease of native coronary artery without angina pectoris; I42.9 Cardiomyopathy, unspecified; E11.9 Type 2 diabetes mellitus without complications; N40.0 Benign prostatic hyperplasia without lower urinary tract symptoms; G25.81 Restless legs syndrome; Z88.1 Allergy status to other antibiotic agents; Z79.82 Long term (current) use of aspirin; Z79.84 Long term (current) use of oral hypoglycemic drugs; Z79.899 Other long term (current) drug therapy; Z87.891 Personal history of nicotine dependence
CPT/HCPCS: 36415; 71045; 71275; 80048; 80053; 80061; 81000; 82550; 82553; 82947; 83735; 83874; 83880; 84100; 84443; 84484; 85025; 85379; 85610; 85730; 87081; 93005; 93041; 93306; G0378